=== PATIENT | female | born 1955 | race Caucasian/White ===

== ENCOUNTER → 2021-01-03 | Outpatient (CLI) | payer BC ==
--- NOTE | 2021-01-03 18:39 | RAD ---
Examination: 1. AP bilateral standing knees. 2. [place] and lateral views of the right knee INDICATION: Knee pain COMPARISON: None. FINDINGS: The standing bilateral knees shows normal alignment with no fracture or aggressive osseous lesions. T he joint spaces appear preserved. The soft tissues are unremarkable. The lateral and sunrise views of the right knee show no significant degenerative change, fracture or malalignment. Soft tissues are unremarkable. IMPRESSION: Negative x-rays of the knees. Electronically signed by: Rosalia Worrell MD (01/03/2021 6:36 PM) [id number]
== END ==
LOC: RAD 12:24
PROVIDERS: ATTEND Physician Assistant
DX: M25.561 Pain in right knee (principal); M25.562 Pain in left knee
CPT/HCPCS: 73560; 73565